=== PATIENT | female | born 1950 | race Caucasian/White ===

== ENCOUNTER 2019-11-24 00:36 | Inpatient (IN) | payer OTHER ==
[~2019-11-24] VITALS: Ht 170.2 cm; Wt 68.0 kg
--- NOTE | ~2019-11-24 | EMS ---
[address] [address] EMS Patient Care Report Name: JOSH VELASQUEZ Room #: ALEXIS MANSFIELD M.R.#: [id number] Admission: 11/24/19 Attend Phys: Discharge: Date of : 48 Report #: [id number] THIS REPORT FOR: //name// Report Transmitted: 11/24/2019 01:23 EMS Care Summary [facility] MED-ACT Incident [id number] @ 11/24/2019 00:00 Incident Location [address] [place] [address] Patient JOSH VELASQUEZ Female, 69 Years 1950 Patient Address [address] [place] [address] Patient History Depression, Patient Allergies No known allergies, Patient Medications Donepezil, Mirtazapine, Famotidine, Cymbalta, Lorazepam, Chief Complaint unresponsive Disposition Transported Lights/[place] Dispatch Reason Unconscious/Fainting Transported To [facility] Narrative C- unresponsive [address] [address] EMS Patient Care Report Name: JOSH VELASQUEZ Room #: ALEXIS Baptiste#: [id number] Admission: 11/24/19 Attend Phys: Discharge: Date of : 48 Report #: [id number] H- Dispatched to an assisted living facility for an unresponsive subject. The pt is found lying in bed unresponsive and small amount of dried blood around her mouth. Staff report they helped the pt to bed at 2200 hours and she was acting her normal self with no complaints. The pt is normally alert and oriented. They came to check on her at 2345 hours and found her to be bleeding from her mouth and unresponsive so they called 911. They said while EMS was responding the pt had a full body seizure that lasted approximately 30 seconds. The pt does not have a seizure history. During care the pt initially has a downward gaze which then deviated to the right. Right before her seizure her gaze shifted up. A- see assessment tab R- Vitals, EKG, 12 lead, bG, temp, IV x2, early code stroke notification to [facility]. T- The pt is picked up and placed on the cot. She is moved to the ambulance and transported to [facility] due to it being the closest hospital. As we are starting to leave the scene the pt begins to have another seizure that lasts about 20-30 seconds. Versed was being prepped when the pt stopped seizing so it was not given. The pt was transported to [facility] with lights and sirens and two paramedics in back. The pt remained unchanged during transport and upon arrival at ED the pt is moved to ED bed via sheet drag. Pt care/report left with nurse. Initial Vitals @00:16P: 101,SpO2: 96,MN Suspected: false @00:13P: 96,R: 12,BP: 146/75,GCS: 3,Glucose: 160,SpO2: 94,Revised Trauma: 8,MN Suspected: false @00:31P: 98,R: 16,BP: 120/67,EtCO2: 23,SpO2: 98, @00:24P: 109,R: 97,BP: 135/65,GCS: 3,EtCO2: 0,SpO2: 18,Revised Trauma: 7, @00:20P: 95,R: 12,BP: 108/64,Temp: 99.7F,SpO2: 97, Assessments @00:12MENTAL:Unresponsive,SKIN:HEENT:Eyes: Left: Constricted,Eyes: Right: Constricted,Head/Face: No Abnormalities,Neck/Airway: No Abnormalities,LUNG SOUNDS:General: No Abnormalities,ABDOMEN:General: No Abnormalities,PELVIS//GI:EXTREMITIES:Left Arm: No Abnormalities,Right Arm: No Abnormalities,Left Leg: No Abnormalities,Right Leg: No Abnormalities,PULSE:NEURO: Impression Unconscious Procedures @00:12ALS AssessmentResponse: UnchangedSucceeded@00:26Saline Lock 10cc (18 ga) Site: Forearm-RightResponse: UnchangedSucceeded@00:30Saline Lock 10cc (18 ga) [place] [address] EMS Patient Care Report Name: JOSH VELASQUEZ Room #: REG SHYLA Baptiste#: [id number] Admission: 11/24/19 Attend Phys: Discharge: Date of : 48 Report #: [id number] Site: Antecubital-LeftResponse: UnchangedSucceeded@00:31Stroke AlertResponse: Unchanged@00:1612-Lead ECG Timeline 23:57,Psap Call 00:00,Dispatched 00:01,En Route 00:08,On Scene 00:10,At Patient 00:12,ALS Assessment,Response: UnchangedSucceeded, 00:13,BP: 146/75 M,PULSE: 96,RR: 12 R,SPO2: 94 Ox,ETCO2: ,B,PAIN: ,GCS: 3, 00:16,12-Lead ECG, 00:16,BP: / M,PULSE: 101,RR: R,SPO2: 96 Ox,ETCO2: ,BG: ,PAIN: ,GCS: , 00:20,BP: 108/64 M,PULSE: 95,RR: 12 R,SPO2: 97 Ox,ETCO2: ,BG: ,PAIN: ,GCS: , 00:24,BP: 135/65 M,PULSE: 109,RR: 97 R,SPO2: 18 Ox,ETCO2: 0 ,BG: ,PAIN: ,GCS: 3, 00:26,Saline Lock 10cc 18 ga Site: Forearm-Right,Response: UnchangedSucceeded, 00:28,Depart Scene 00:30,Saline Lock 10cc 18 ga Site: Antecubital-Left,Response: UnchangedSucceeded, 00:31,BP: 120/67 M,PULSE: 98,RR: 16 R,SPO2: 98 Ox,ETCO2: 23 ,BG: ,PAIN: ,GCS: , 00:31,Stroke Alert,Response: Unchanged 00:33,At Destination 01:08,Call Closed 23:57,Call Received Disclaimer v1.1 Copyright 2020 [employer] This EMS Care Summary contains data elements from the applicable legal record (which may be displayed differently). It is designed to provide pertinent information for the following purposes: continuity of care, clinical quality, and state data reporting. The complete legal record is available to ED staff and administrators of the receiving hospital in [employer] Patient Tracker. All data is provided "as is."
--- NOTE | 2019-11-24 01:09 | NUR ---
FAMILY, DAUGHTER IN LAW KEN CRUZ HAS BEEN CONTACTED, 1ST CONTACT MITESH STOVER IS OUT OF TOWN, [place], SON- LORA CANNOT BE REACHED , PHONE IS OFF.. KEN CONFIRMED DNR STATUS. SHE HAS BEEN UPDATED.
--- NOTE | 2019-11-24 01:12 | NUR ---
UNABLE TO REACH THE [facility], 2 PHONE CALLS, WITH NO ANSWER.
[2019-11-24 01:16] LABS: ABSOLUTE NEUTROPHILS 6.6 thou/uL (1.4-8.2); BASOPHILS 0.2 % (0.0-2.0); HEMOGLOBIN 13.9 gm/dL (12.0-15.0); LYMPHOCYTES 9.6 % (24.0-44.0); MCH 31.2 pg (26.0-34.0); MCV 94.6 fL (80.0-100.0); MONOCYTES 6.7 % (1.0-8.0); PLATELET COUNT 190 thou/uL (150-400); POLYS 83.5 % (36.0-66.0); RBC 4.44 mil/uL (4.20-5.00); RDW 14.9 % (10.5-14.5)
[2019-11-24 01:17] LABS: CALCIUM 8.5 mg/dL (8.5-10.1); CREATININE 1.1 mg/dL (0.6-1.0)
[2019-11-24] MEDS ORDERED: CYMBALTA60 MG PO (01:20)
[2019-11-24] MEDS ORDERED: MIRTAZAPINE15 M2 PO (01:20)
[2019-11-24] MEDS ORDERED: HEARTBURN RELIE20 MG PO (01:20)
[2019-11-24] MEDS ORDERED: SUPER THERAVIT1 EACH PO (01:21)
[2019-11-24 01:23] LABS: DIRECT BILIRUBIN 0.2 mg/dL (<0.1-0.2); TOTAL BILIRUBIN 0.6 mg/dL (0.2-1.0); TOTAL PROTEIN 7.4 g/dL (6.4-8.2)
--- NOTE | 2019-11-24 01:28 | NUR ---
PT HAD 3RD WITNESSED SIEZURE AT 115AM, DR MIRANDA NOTIFIED.
--- NOTE | 2019-11-24 01:29 | NUR ---
KEN CALLED FOR UPDATE
--- NOTE | 2019-11-24 01:30 | NUR ---
NO RESPONSE WHEN CONTACTING THE [facility]
[2019-11-24 01:35] LABS: APTT 27.4 Seconds (24.5-32.8); INR 1.1; PROTIME 11.6 Seconds (9.3-11.4)
[2019-11-24 01:43] LABS: URINE BILIRUBIN NEGATIVE (Negative); URINE BLOOD 1+ (Negative); URINE CLARITY CLEAR; URINE COLOR YELLOW; URINE GLUCOSE-RANDOM* NEGATIVE (Negative); URINE KETONES 1+ (Negative); URINE LEUKOCYTES-REFLEX NEGATIVE (Negative); URINE NITRITE-REFLEX NEGATIVE (Negative); URINE PROTEIN (DIPSTICK) NEGATIVE (Negative); URINE SPECIFIC GRAVITY 1.015 (1.005-1.035); URINE UROBILINOGEN 0.2 E.U./dl (0.2-1.0)
[2019-11-24 01:57] LABS: AMP/METHAMP Negative (Negative); BARBITURATES Negative (Negative); BENZODIAZEPINES Negative (Negative); COCAINE Negative (Negative); METHADONE Negative (Negative); OPIATES Negative (Negative); PCP Negative (Negative)
--- NOTE | 2019-11-24 02:09 | NUR ---
NURSE FROM [facility] CALLED, CONFIRMED MEDICATION REPORT SENT WITH PT
[2019-11-24] MEDS ORDERED: ARICEPT10 M1 PO (02:12)
[2019-11-24] MEDS ORDERED: ACETAMINOPHEN325 M1 PO (02:12)
[2019-11-24] MEDS ORDERED: BUPROPION PO (02:21)
[2019-11-24 02:22] LABS: BACTERIA-REFLEX 1-9 Few /HPF (None Seen); CASTS None Seen /LPF (None Seen); CRYSTALS None Seen /LPF (None Seen); MUCUS 0-3 Light strn/LPF (None Seen); SQUAMOUS 0-3 Few /LPF (0-3); URINE RBC 3-10 Few /HPF (0-2); URINE WBC-REFLEX 0-5 Rare /HPF (0-5)
[2019-11-24] MEDS ORDERED: COLACE100 MG PO (02:22)
--- NOTE | 2019-11-24 02:54 | NUR ---
DAUGHTER IN LAW KEN CALLED, TALKING WITH DR MIRANDA
--- NOTE | 2019-11-24 07:48 | NUR ---
daughter in law carolynn updated on pt status. Reports additional meds were prescribed by [facility] several days ago.
--- NOTE | 2019-11-24 08:15 | NUR ---
talked with nurse at the [facility], she states no new meds have been ordered for this pt since she has been there, confirms that she takes duloxetine, buproprion 50 mg and multivitamin. She will check with Dr Green regarding any addition medication ordered that has not been received yet.
[2019-11-24] MEDS ORDERED: REMERON15 M2 PO (10:41)
--- NOTE | 2019-11-24 10:41 | NUR ---
[facility] CALLED TO GET AN UPDATE, INFORMED THAT PT HAS BEEN TAKING REMERON 15 MG AT SINCE THE .
--- NOTE | 2019-11-24 10:56 | NUR ---
KEN CALLED TO GET UPDATE
--- NOTE | 2019-11-24 13:00 | NUR ---
Attempted to call SNF to get the DNR paperwork sent to ER. There is an order in the chart from the facility. But this RN is unable to find the advance directive. This RN transferred multiple times and placed on hold multiple times. Spoke to Siri nurse, who reports that she will fax the advanced directive.
[2019-11-24 13:49] VITALS: BP 104/63
--- NOTE | 2019-11-24 13:52 | NUR ---
Called Siri, nurse, again about DNR. Siri reports she is "working on this right now"
--- NOTE | 2019-11-24 14:01 | NUR ---
KEN CALLED TO GET AN UPDATE
--- NOTE | 2019-11-24 14:20 | NUR ---
Called [facility] again. Reports she has not been able to locate the DNR paperwork. Will fax over the DNR consent form and continue to look for the DNR form.
[2019-11-24 14:51] LABS: TSH 0.752 uIU/mL (0.358-3.740)
[2019-11-24 14:57] VITALS: BP 93/59
[2019-11-24 15:15] VITALS: BP 94/53
[2019-11-24 15:30] VITALS: BP 94/53
--- NOTE | 2019-11-24 18:53 | NUR ---
PT CARE ASSUMED AT 1515. ASSESSMENT CHARTED. MEDICATION CHARTED. PT IS UNRESPONSIVE; SLUGGISH PUPILS; NO RESPONSE TO PAIN CURRENTLY. BILLY. LAC IV; RFA IV. PT IS DNR. DPOA STATES NO ANTIBIOTICS AND NO MRI PER PT'S WISHES. DR HOOKER AT 1723 AND 1825.
[2019-11-24 20:07] VITALS: BP 106/68
--- NOTE | 2019-11-24 23:18 | NUR ---
PT REPORT CALLED TO [facility]ANN[facility] TO ASSUME NURISNG CARE. PT IS UNRESPONSIVE. FAMILY AT HERE THIS EVENING. MAKING SURE HER PLAN OF CARE GOT CHANGED TO [facility]ARE. LUNGS ARE CLEAR ON 2L. SON WAS AT THE BEDSIDE THIS EVENING. EXPLAIN SHE WOULD PROBABLY BE MED SURG AND WE COULD TAKE THE CARDIAC CARE MONITOR OFF HER. DOES NOT APPEAR ANXIOUS OR IN PAIN SO MEDS NOT GIVEN BUT ON THE MAR IF NEED TO BE GIVEN . WILL CONTINUE TO ASSESS AND MONITOR PER RAH
[2019-11-24 23:42] VITALS: BP 105/66
--- NOTE | 2019-11-24 23:54 | NUR ---
PATIENT ARRIVED FROM 2N ROOM 214 AT 2330 VIA BED WITH SAIL FINISHER MACHINE. NON-RESPONSIVE WITH 02NC AT 2L WITH NO DISTRESS NOTED. BILLY TO D/D WITH LIGHT MAYLIN URINE. SEIZURE PRECAUTIONS FOLLOWED. PATIENT IS NPO. REMAINS ON COMFORT CARE. RESTING QUIETLY. WILL MONITOR.
[2019-11-25 06:06] LABS: ABSOLUTE NEUTROPHILS 7.7 thou/uL (1.4-8.2); BASOPHILS 0.1 % (0.0-2.0); HEMOGLOBIN 13.2 gm/dL (12.0-15.0); LYMPHOCYTES 6.2 % (24.0-44.0); MCH 31.4 pg (26.0-34.0); MCHC 34.7 g/dL (28.0-37.0); MCV 90.4 fL (80.0-100.0); PLATELET COUNT 152 thou/uL (150-400); POLYS 88.7 % (36.0-66.0); RDW 14.7 % (10.5-14.5); WBC 8.6 thou/uL (4.0-11.0)
[2019-11-25 06:22] LABS: CALCIUM 7.2 mg/dL (8.5-10.1); CREATININE 0.5 mg/dL (0.6-1.0); MAGNESIUM 1.6 mg/dL (1.8-2.4)
[2019-11-25 06:24] LABS: POTASSIUM 2.5 mmol/L (3.5-5.1)
[2019-11-25 08:18] VITALS: BP 96/48
--- NOTE | 2019-11-25 14:56 | NUR ---
CRITICALLY LOW K+ NOTED FROM LABS DRAWN PRIOR SHIFT TIME FRAME; FAMILY AND PHYSICIAN AWARE
--- NOTE | 2019-11-25 16:39 | EKG ---
[facility] [place] [address] ELECTROCARDIOGRAM REPORT Name: JOSH VELASQUEZ Room #: 447- ADM IN M.R.#: [id number] Admission: 11/24/19 Attend Phys: Fazal Jacques MD Discharge: Date of : 48 Report #: [id number] THIS REPORT FOR: cc: Chris Green James D. DO Lundgren, Craig H. MD [facility] ~ THIS REPORT FOR: //name// [facility] ED Test Date: 2019-11-24 Test Time: 01:24:05 Pat Name: JOSH VELASQUEZ Department: Room: [facility] Gender: F Medical Collections Specialist: : 1950 Requested By: Yarelis Wright Order Number: [id number] MD: Flash Ayala Measurements Intervals [place] Rate: 97 P: 83 LA: 173 QRS: 85 QRSD: 86 T: -72 QT: 391 QTc: 497 Interpretive Statements Sinus rhythm Nonspecific ST segment abnormality No previous ECG available for comparison Electronically Signed On 11-25-2019 16:38:49 CDT by Flash Ayala [email or web address] <ELECTRONICALLY SIGNED> By: Flash Ayala MD, FAC 11/25/19 [id number] [id number] [id number] Flash Ayala MD, [facility] /EPI
--- NOTE | 2019-11-25 17:33 | NUR ---
CALL FAMILY IF: THERE IS A HUGE CHANGE, THEY LIVE 30 MINUTES AWAY. THEY ALSO MENTIONED IF THIS IS MISSED AND SHE EXPIRES THEY UNDERSTAND. DURING THE WEEK HER SON WORKS CLOSE BY. ASKED PHYSICIAN FOR DR. RAMOS CONSULT AND ORDERED BEREAVEMENT BASKET. PT BECAME MUCH MORE RELAXED WITH ADM OF MORPHINE. FAMILY STILL AT BEDSIDE.
--- NOTE | 2019-11-26 07:20 | NUR ---
ORDERS RECEIVED, CHART REVIEWED, PATIENT ON COMFORT CARE. ACUTE OT TO SIGN OFF, PLEASE RECONSULT IF NEEDED.
--- NOTE | 2019-11-26 07:25 | NUR ---
PT LYING IN BED. COMFORT CARE. ATIVAN AND MORPHINE AVAILABLE. RESTING COMFORTABLY. FREQUENT OBSERVATION.
--- NOTE | 2019-11-26 08:01 | NUR ---
ORDERS FOR EVAL AND TREAT HOWEVER Pt NOW ON COMFORT MEASURES. WILL SIGN OFF.
--- NOTE | 2019-11-26 11:26 | NUR ---
Assumed care of pt at 0700. Pt on comfort care. Morphine administered per comfort. Family at bedside.
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
--- NOTE | 2019-11-26 15:34 | NUR ---
THIS SACK FILLER WAS CALLED TO COME VISIT PATIENT, SON AND SON'S . PATIENT WAS BARELY RESPONSIBLE. SHE IS REPORTED TO NO LONGER BE WILLING TO EAT OR DRINK. PATIENT WAS REPORTED TO HAVE GROWN UP AND RASIED HER CHILDREN SABIANISM. SON SAYS PATIENT MANY TIMES FEELS REMORSE OVER THINGS. PATIENT ATTEND [facility] OR [facility] FOR 0VER 40 YEARS OF HER LIFE UNTIL HER CHILDREN'S FATHER . THE SON DESCRIED THE NEW VERY CONTROLLING AND HIS MOTHER COMPLIED WUITH ALL OF HIS WISHES INCLUDING BECOMING SIKH INSTEAD OF SABIANISM. THIS SACK FILLER LISTENED REALIZING THE CHILDREN HAD BEEN DEALNG WITH HER CHALLENGES SEVERAL YEARS. IT SOUNDS LIKE THEY KEPT TRYING TO GET HER HELP, BUT SHE DID NOT WANT IT. HE SHARED SHE HAS OFTEN SAID "SHE JUST WANTS TO GO BE WITH KAY". WE DISCUSSED THE ASPECT OF WHAT TO DO WHEN A PERSON NO LONGER DESIRES TO EAT WHEN THEY GET OLDER. MANY TIMES DEMENTIA IS THE ISSUE WHEN PEOPLE NO LONGER DSIRE TO EAT OF HAVE TO BE CUED TO EAT. WE DISCUSED SOME OF THE CONCEPTS REGARDING "END OF LIFE" OUTLINED IN THE "THE ETHICAL AND ANGLICAN DIRECTIVES FOR [facility]IANISM [facility]". WE DISCUSSED THE PATIENT'S FREE WILL TO EAT OR DRINK OR NOT WITHOUT BEING FORCED DUE TO A OTHERS TRYING TO FORCE THEIR WILL ON THE PATIENT. PATIENT APPOINTED HER SON TREVER AND IT SEEMS FROM WHAT HE SAID ALL THE FAMILY MEMBERS ARE ON BOARD FOR END OF LIFE CARE. THIS SACK FILLER SPENT ALMOST AN HOUR VISIT WITH THE SON AND DAUGHTER IN LAW OUTSIDE THE ROOM. THEY REPORTED THE PATIENT HAS BEEN IN 2 DIFFERENT HOSPITAL PSYCHIATRIC UNITS FOR DEPRESSION AND A LACK OF HOPE TO CINTINUE GOING ON WITH LIFE. 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 WE CONCLUDED IN PRAYER,
--- NOTE | 2019-11-26 15:50 | NUR ---
INITIAL ASSESSMENT: Received consult for hospice. LOKI reviewed chart and spoke with nursing and attending physician. Pt is on comfort care measures. Pt was admitted from [facility] following seizure activity/AMS. Pt with hx of depression and SI. Pt has been in inpt psych facilities this year. Psych consulted today to evaluate pt. LOKI met with pt, son (Roger) and dtr-in-law (Makeda) at bedside. Introduced role of SW. Pt was alert but not speaking during time of SW visit. 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 Pt with hx of depression and has been refusing to eat. There was a period of time when pt and her son were estranged. Pt was in a bad marriage and pt's son went to [place] and brought her back to . Pt has DPOA/living will on her chart. Pt's family state they do not want any further work up or aggressive care at this time. Neuro consulted. Pt's son requests referral to [facility]. LOKI explained admission criteria for the hospice house. Pt's son verbalized understanding and states he is familiar with the hospice house. Pt's family are requesting scheduled pain meds. PRN meds are ordered and available for pt. LOKI faxed referral to Hospice (request for [facility] location). Notified community liaison of new referral. Family state that if pt is not accepted to the hospice house, they will consider taking pt home with them, so she can be with family. As she would not have visitors if she were to go to a nursing facility. LOKI is following to assist as needed with discharge planning.
[2019-11-26 18:30] VITALS: BP 124/56
[2019-11-26 19:14] VITALS: BP 94/87
--- NOTE | 2019-11-27 02:59 | NUR ---
ASSUMED CARE OF PT AT 1900HRS. PT IS AOX1-2 AND NEEDS MUST BE ANTICIPATED. FALL PRECAUTION IN PLACE. BILLY IN PLACE AND IS PATIENT. ASSESSMENT CHARTED. PT HAS SLEPT MOST OF THE SHIFT. PT APPEARS TO BE COMFORTABLE. WILL CONTINUE TO MONITOR FOR CHANGES.
[2019-11-27 03:50] VITALS: BP 96/54
[2019-11-27 09:25] VITALS: BP 96/56
--- NOTE | 2019-11-27 10:55 | NUR ---
Assumed care of pt at 0700. Pt on comfort care. 2L O2. Hospice nurse evaluated the patient and stated she qualifies for hospice. Awaiting psych consult. Horton catheter in place. Family at bedside. Fall precautions in place. Will continue to monitor.
--- NOTE | 2019-11-27 15:31 | NUR ---
ON-GOING ASSESSMENT: CM REVIEWED CHART AND SPOKE WITH ATTENDING. PT WAS EVALUATED BY HOSPICE TODAY AND REPORTS SHE QUALIFIES IF SHE CHOOSES HOSPICE BUT DOES NOT QUALIFY FOR THE HOSPICE HOUSE. PT IS ABLE TO GO HOME WITH HOSPICE OR LTC IF THEY CHOSE. CM SPOKE WITH DR. BHAGAT THE PSYCHIATRIST THAT SAW PATIENT AND SPOKE WITH FAMILY AND PT IS WANTING TO GET BETTER AND LOOK INTO REHAB/SNF AND THEN POSSIBLY TRANSITION TO ASSISTED LIVING OR LTC AND NOT WANTING HOSPICE AT THIS TIME. CM DISCUSSED WITH PT AND FAMILY AND THEY ARE WANTING TO LOOK INTO A SNF THAT ALSO OFFERS ASSISTED LIVING/LTC THAT ACCEPTS MEDICAID FOR THE FUTURE THEY FEEL PATIENT WILL EVENTUALLY NEED MEDICAID DOWN THE ROAD. CM PROVIDED LIST TO PT AND FAMILY. THEY WANTED A REFERRAL SENT TO [facility]. CM SENT REFERRAL AND SPOKE WITH ERIN IN ADMISSIONS WHO REPORTS THEY WILL REVIEW AND GET BACK TO CM. REFERRAL ALSO SENT TO [facility] WHO REPORTS THEY WOULD REVIEW. CM WILL CONTINUE TO FOLLOW TO ASSIST NEEDED.
[2019-11-27 16:00] VITALS: BP 103/43
[2019-11-27 20:15] VITALS: BP 100/57
--- NOTE | 2019-11-28 02:47 | NUR ---
ASSESSED AT START OF SHIFT. EVENING MEDS GIVEN AND PT MARLYN IT WELL. SCOPOLAMINE PATCH PLACED BEHIND RT EAR. BORING MACHINE OPERATOR PROVIDED BED BATH THIS SHIFT. FOLLEY INTACT WITH DARK COLOR URINE. PO FLUID GIVEN. FALL PREC IN PLACE, HOURLY ROUNDING DONE. WILL CONT WITH POC TILL EOS.
[2019-11-28 07:51] VITALS: BP 101/57
[2019-11-28] MEDS ORDERED: ARICEPT10 M1 PO (10:25)
[2019-11-28] MEDS ORDERED: COLACE100 MG PO (10:32)
[2019-11-28] MEDS ORDERED: FAMOTIDINE 10 M10 MG PO (10:33)
--- NOTE | 2019-11-28 12:27 | NUR ---
Assumed care of pt at 0700. Pt a&ox4 this am. Pt asks when breakfast is coming. Able to feed self with setup. Pt went for head MRI. Will notify Dr when results are back. Pt worked with physical therapy and ambulated in the hallway. Family concerned about restarting all home meds. Provider aware. Horton catheter in place. Covid neg. Fall precautions in place. Will continue to monitor.
[2019-11-28 13:45] LABS: HEMATOCRIT 41.8 % (37.0-47.0); HEMOGLOBIN 14.8 gm/dL (12.0-15.0); MCHC 35.4 g/dL (28.0-37.0); MCV 93.2 fL (80.0-100.0); RBC 4.48 mil/uL (4.20-5.00); RDW 14.6 % (10.5-14.5); WBC 3.9 thou/uL (4.0-11.0)
[2019-11-28 13:56] LABS: ALBUMIN 3.1 g/dL (3.4-5.0); CALCIUM 9.8 mg/dL (8.5-10.1); CREATININE 0.6 mg/dL (0.6-1.0); TOTAL BILIRUBIN 0.7 mg/dL (0.2-1.0); TOTAL PROTEIN 7.6 g/dL (6.4-8.2)
[2019-11-28 13:57] LABS: POTASSIUM 2.8 mmol/L (3.5-5.1)
--- NOTE | 2019-11-28 14:55 | NUR ---
ON-GOING ASSESSMENT: CM REVIEWED CHART AND SPOKE WITH ATTENDING. SHE REPORTS FAMILY IS NOT WANTING ANOTHER INPATIENT PSYCHIATRIC HOSPITALIZATION AND REPORTS THAT PATIENT WILL LIKELY NEED A HIGHER LEVEL OF CARE SUCH MEMORY CARE AT DISCHARGE. PT WOULD BE PRIVATE PAY UNTIL FUNDS RUN OUT AND THEN FAMILY WOULD LIKE HER TO TRANSITION TO MEDICAID IF POSSIBLE. CM SENT REFERRAL TO [facility] TO WORK WITH FAMILY/EDUCATE ON MEDICAID PROCESS. CM ALSO PROVIDED PATIENTS SON/DPOA WITH MEMORY CARE LIST AND THEY ARE GOING TO CALL SOME FACILITIES. PT HAS ABOUT 8000 IN HER SAVINGS AND GETS ABOUT 2000/MONTH THEY REPORT. FAMILY EXPRESSED INTEREST IN [place] AT [facility] AND REPORTED THEY CAN CALL THEM TO FOLLOW UP. CM CONTACTED ADMISSIONS THERE AND THEY DO HAVE A MEMORY CARE BED OPEN AND PRIVATE ROOM COST 6,210/MONTH WITH 2,500 UPFRONT FOR COMMUNITY FEE OR A SHARED ROOM COST 4,395/MONTH. CM ALSO PROVIDED FAMILY WITH LIST FOR THEM TO CALL AND GATHER OTHER PRICES. CM WILL CONTINUE TO FOLLOW TO ASSIST NEEDED.
[2019-11-28 15:27] VITALS: BP 100/60
[2019-11-28 19:35] VITALS: BP 103/59
--- NOTE | 2019-11-29 01:56 | NUR ---
PT WAS OBSERVED DOING HER ORAL CARE AFTER EATING DINNER AT START OF SHIFT.PT WAS SITTING UP IN THE RECLINER IN HER ROOM AND FINALLY WAS TRANSFERRED BACK TO HER BED.PT DENIED PAIN SO FAR.BILLY CATH IN PLACE TO DD.PT'S DTR CALLED AND WAS UPDATED ON THE PT'S CONDITION.PT'S CARE TRANSFERRED TO ANOTHER NURSE AT 2330.
--- NOTE | 2019-11-29 02:42 | NUR ---
ASSUMED PT CARE AT AROUND 2330 HRS. PT ALERT TO SELF, PLACE, SITUATION.SHE IS FORGETFUL.PT HAS A FLAT AFFECT. I GAVE HER WATER AND SHE DRANK WELL.C/O PAIN TO BLE-SOME EDEMA NOTED MORE TO THE LLE. LEGS ELEVATED ON PILLOWS. BILLY TO D/D. DARK YELLOW AMOUNTS NOTED.PT ASSISTED TO REPOSITION.PT IS ON ROOM AIR- NO COUGH OR SOA NOTED. FALL PREC IN PLACE.
[2019-11-29 03:55] VITALS: BP 99/56
[2019-11-29 07:12] LABS: CALCIUM 8.9 mg/dL (8.5-10.1); CREATININE 0.5 mg/dL (0.6-1.0); POTASSIUM 3.6 mmol/L (3.5-5.1)
[2019-11-29 08:38] VITALS: BP 98/56
--- NOTE | 2019-11-29 12:10 | NUR ---
PT ALERT XS4. STATES NO PAIN AND NO RESP DISTRESS NOTED. BILLY CATH DCD HAD 100 CC IN BILLY BAG. AT 11:00. PT UP IN BEDSIDE CHAIR NO SEIZURES ON SHIFT. HAS MOUTH /LIP SORE. AUTO BODY STRAIGHTENER FOR GERIATRIC DOCTOR PUT IN ORDER FOR TOPICAL MED.
--- NOTE | 2019-11-29 16:00 | NUR ---
ON-GOING ASSESSMENT: CM REVIEWED CHART AND SPOKE WITH PATIENT AT THE BEDSIDE. PT REPORTS SHE IS FEELING BETTER BUT STILL FEELS WEAK. CM RECEIVED A CALL FROM [facility] WHO REPORTS THAT THEY CANNOT ACCEPT THE PATIENT BACK THERE AND SHE IS NOT APPROPRAITE FOR THEIR SNF AND HAVE LEFT MESSAGES FOR HER SON TO CUSTOM TAILOR HER BELONGINGS. CM SPOKE WITH PATIENTS JULITA PAULINO WHO CONTACTED CM AND REPORTED AFTER HAVING A LONG CONVERSATION WITH HIS MOTHER WELL [facility] AND [facility] WHO OFFERS SERVICES THERE THEY WISH TO TAKE [place] TO [place]ART[place] AT [facility] WITH [facility] AND PRIVATE DUTY SERVICES. HE REPORTS HE SPOKE WITH [facility] AND THEY CAN PROVIDE SERVICES ALONG WITH SHARED CARE PACKAGES WITH PRIVATE DUTY TO HELP ASSIST PATIENT THROUGHOUT THE DAY SO SHE IS ABLE TO STAY IN HER APT. HE REPORTS ONCE [place] THAT [facility] WILL EVALUATE PATIENT AND DETERMINE WHICH PATIENT SHE NEEDS IN ADDITION TO HOSPICE SERVICES. CM SPOKE WITH YENNIFER AT [facility] WELL JULISSA. JULISSA REPORTS THEY CAN ACCEPT HER FOR ADMISSION TO HOSPICE TOMORROW AND HAVE A NURSE OUT THERE AT TIME OF DISCHARGE IF WE CAN CORDINATE A TIME. JULISSA CAN BE REACHED AT [phone]. SON REPORTS THEY WANT TO USE [facility] AND NOT [facility]. CM SENT REFERRAL TO [facility] ALONG WITH NEGATIVE COVID TEST. SHE REPORTS THEY WILL JUST NEED ORDERS TOMORROW. JULISSA HAS BEEN IN CONTACT WITH [facility] PRIVATE DUTY WELL PATIENTS SON LORA. CM SPOKE WITH PATIENT AND SHE IS AGREEABLE WITH THIS PLAN AND PREFERS TO GO TO HER APT. CM ATTEMPTED TO CONTACT BEAU AT [facility] PER SONS REQUEST THEY WOULD LIKE A NEGATIVE COVID TEST SENT TO THEM. CM ATTEMPTED TO REACH [facility] BUT SHE IS GONE FOR THE DAY AND REQUEST WE CALL BACK TOMORROW. CM NOTIFIED ATTENDING OF PT AND FAMILYS WISHES BUT HAS NOT HEARD BACK AT THIS TIME. CM WILL CONTINUE TO FOLLOW TO ASSIST NEEDED. SON REPORTS THEY WANT TO TRY THIS PLAN FIRST AND THEN IF THAT IS NOT SUCCESSFUL WILL THEN LOOK INTO A MEMORY CARE FACILITY. CM WILL CONTINUE TO FOLLOW.
[2019-11-29 20:28] VITALS: BP 100/66
--- NOTE | 2019-11-30 02:59 | NUR ---
PT OBSERVED SITTING IN THE CHAIR AT THE START OF SHIFT. SHE IS ALERT AND ORIENTED. WITH ASSIST X 1 AND WITH ROLLER WALKER, PT ABLE TO TRANSFER TO BED. PT LOOKS VERY WEAK.NO COUGH OR SOA NOTED. PT C/O DISCOMFORT TO LEGS. SOME SWELLING NOTED, LEGS ELEVATED ON PILLOW. PT IS AFEBRILE. WAS ABLE TO SWALLOW HS PILL WITH NO ISSUES.REMAINS ON ROOM AIR AND IN NO DISTRESS. WILL CONTINUE WITH POC TILL EOS.
[2019-11-30 08:00] VITALS: BP 95/66
[2019-11-30 12:36] VITALS: BP 95/66
--- NOTE | 2019-11-30 13:30 | NUR ---
DISCHARGE NOTE: LOKI reviewed chart and spoke with nursing and attending physician. Pt is medically stable for discharge home to her apt at [facility] with [facility] and private duty services through [facility]. LOKI spoke with pt's son/DPOA, Roger, to provide update and discuss discharge plan. Pt's family to meet her over at her apt when she arrives. Pt will need transportation home. Pt's brother was at the hospital earlier today and spoke with nursing. LOKI arranged w/c van through [employer] for 1600. Family notified of transportation time and are agreeable with discharge plan. LOKI faxed finalized discharge orders/summary to [facility] and spoke with Emma to confirm they will see pt at her apt later today. LOKI spoke with Keiko at [facility] to notify of pt's COVID negative test results. Pt to return to her apt [address]. SW notified nursing of transportation time. No additional SW needs identified at this time, but is available to assist should needs arise.
[2019-11-30 16:19] VITALS: BP 95/66
--- NOTE | 2019-11-30 16:21 | NUR ---
DISCHARGE PAPERS REVIEWED AND SIGNED AND COPY IN CHART. IV ACSESS DCD. ALL BELONGINGS PACKED AND SENT WITH PATIENT. [facility] HERE TO [facility] TECHNICIAN PATIENT. BROTHER WHO STATED IF WE CALLED HIM AT [phone] HE WOULD MEET PT AT HERE RESIDENCE DID NOT ANSWER PHONE. LEFT MESSAGE. PT W/O PAIN OR RESP DISTRESS AT DISCHARGE.
== END 2019-11-30 16:28 | disposition hospice, home (50) | DRG 100 ==
LOC: ER 00:36 → EROBS 03:28 → 4S 03:28 → 2N 15:27 → 4S 23:36
PROVIDERS: Emergency Medicine; Internal Medicine; Nurse Practitioner Family; Psychiatry & Neurology Neurology; ADMIT Hospitalist; ATTEND Hospitalist
DX: G40.901 Epilepsy, unspecified, not intractable, with status epilepticus (principal); G93.41 Metabolic encephalopathy; J96.01 Acute respiratory failure with hypoxia; J69.0 Pneumonitis due to inhalation of food and vomit; R45.851 Suicidal ideations; F33.2 Major depressive disorder, recurrent severe without psychotic features; Z20.828 Contact with and (suspected) exposure to other viral communicable diseases; K21.9 Gastro-esophageal reflux disease without esophagitis; G47.33 Obstructive sleep apnea (adult) (pediatric); K59.00 Constipation, unspecified; Z66 Do not resuscitate; Z51.5 Encounter for palliative care; E87.6 Hypokalemia; R62.7 Adult failure to thrive; Z68.23 Body mass index [BMI] 23.0-23.9, adult; Z79.899 Other long term (current) drug therapy
CPT/HCPCS: 10102; 10195